=== PATIENT | male | born 1960 ===

== ENCOUNTER 2021-12-01 12:28 | Emergency (ER) | payer BC, OTHER ==
[2021-12-01] MEDS ORDERED: Diltiazem 25 MG/5 ML SDV IVPUSH ONE (13:21)
[2021-12-01 13:55] LABS: ANION GAP 15.5 mEq/L (7-13); CHLORIDE,CL 103 mmol/L (98-107); SODIUM,NA 141 mmol/L (136-145)
== END 2021-12-01 15:00 | disposition home or self-care (01) ==
LOC: DL.ED 12:28
DX: R00.0 Tachycardia, unspecified (principal); R00.2 Palpitations; Z79.82 Long term (current) use of aspirin
CPT/HCPCS: 36415; 71045; 80053; 80307; 81003; 82150; 83605; 83690; 83880; 84443; 84484; 85025; 86140; 93005; 93010; 96374; 99284; 99285-25; J3490

== ENCOUNTER 2024-04-27 12:15 | Emergency (ER) | payer MEDICARE, BC ==
[2024-04-27 13:27] LABS: BASOPHILS PERCENT AUTO 0.3 % (0.0-1.0); EOSINOPHILS PERCENT AUTO 1.6 % (1.0-3.0); HEMATOCRIT 38.3 % (40.0-54.0); HEMOGLOBIN 13.5 g/dL (14.0-18.0); LYMPHOCYTES PERCENT AUTO 11.8 % (20.5-50.1); MEAN CORPUSCULAR HEMOGLOBIN 32.5 pg (27.0-34.0); MEAN CORPUSCULAR HGB CONC 35.2 g/dL (33.0-35.0); MEAN CORPUSCULAR VOLUME 92.1 fL (80-100); MONOCYTES PERCENT AUTO 6.1 % (2-8); NEUTROPHILS PERCENT AUTO 80.2 % (42.2-75.2); PLATELET COUNT,PLT 201 10^3/uL (150-450); RED BLOOD CELL COUNT 4.16 10^6/uL (4.6-6.2); WHITE BLOOD CELL COUNT,WBC 8.8 10^3/uL (5.0-10.0)
[2024-04-27 13:41] LABS: A/G RATIO 1.4; ALBUMIN 4.3 g/dL (3.4-5.0); ANION GAP 13.8 mEq/L (7-13); BILIRUBIN TOTAL 0.7 mg/dL (0.2-1.0); BUN/CREATININE RATIO 15.6 (No establ ref range); CALCIUM 9.9 mg/dL (8.5-10.1); CREATININE 1.35 mg/dL (0.70-1.30); EST CRCL DRUG DOSING (CG) 61.65 mL/min; POTASSIUM,K 4.8 mmol/L (3.5-5.1); PROTEIN TOTAL,TP 7.4 g/dL (6.4-8.2)
[2024-04-27] MEDS: Ketorolac 30 MG/ML SDV IVPUSH ONE (15:33)
[2024-04-27] MEDS ORDERED: Naloxone 2 MG/2 ML Syringe IVPUSH PRN (15:47)
[2024-04-27] MEDS: Morphine 4 MG/ML Syringe IVPUSH ONE (16:05)
[2024-04-27] MEDS: Ondansetron 4 MG/2 ML SDV IVPUSH ONE (16:05)
== END 2024-04-27 16:31 | disposition home or self-care (01) ==
LOC: DL.ED 12:15
DX: M75.101 Unspecified rotator cuff tear or rupture of right shoulder, not specified as traumatic (principal); I10 Essential (primary) hypertension; Z87.891 Personal history of nicotine dependence; Z79.82 Long term (current) use of aspirin
CPT/HCPCS: 36415; 73010-RT; 80053; 84484; 85025; 93010; 96374; 96375; 99283-25; 99284; J1885; J2270; J2405